=== PATIENT | male | born 1995 | race Two or more races ===

== ENCOUNTER 2018-02-06 14:13 | Emergency (ER) | payer OTHER ==
[2018-02-06 14:32] VITALS: BP 125/78
[2018-02-06] MEDS ORDERED: LIDOCAINE 2%-EPI 1:100000 20 ML MDV ONE (15:00)
--- NOTE | 2018-02-06 15:10 | ED Physician Documentation ---
PD HPI UPPER EXT INJURY - Stated complaint Stated Complaint: HAND LAC - Chief complaint Chief Complaint: Laceration - History obtained from History obtained from: Patient - History of Present Illness Location: Right, Hand Type of injury: Laceration Where injury occurred: Work Timing - onset: Today (Just prior to arrival.) Associated symptoms: No: Weakness, Numbness - Additonal information Additional information: The patient is a 22-year-old male who was removing concrete form boards when his hammer missed a bracket and he slammed his right hand into the concrete form bracket, cutting his hand. He is right hand dominant. He denies any other injuries. He does not know his tetanus status. Review of Systems Skin: reports: Laceration (s) Musculoskeletal: reports: Extremity pain (Right hand.) Neurologic: denies: Focal weakness, Numbness PD PAST MEDICAL HISTORY - Past Medical History Past Medical History: No - Past Surgical History Past Surgical History: Yes Derm: Other - Present Medications Home Medications: Ambulatory Orders Medication Instructions Recorded Confirmed No Known Home Medications [No 02/06/18 02/06/18 Known Home Medications] - Allergies Allergies/Adverse Reactions: Allergies Allergy/AdvReac Type Severity Reaction Status Date / Time No Known Drug Allergies Allergy Verified 02/06/18 14:34 - Social History Does the pt smoke?: No Smoking Status: Never smoker Does the pt have substance abuse?: Yes Substance Use and Type: Marijuana - Immunizations Immunizations are current?: No Immunizations: TDAP >10years/unknown PD ED PE NORMAL - Vitals Vital signs reviewed: Yes (normal) - General General: Alert and oriented X 3, Well developed/nourished - HEENT HEENT: Atraumatic - Respiratory Respiratory: No respiratory distress - Derm Derm: No rash - Extremities Extremities: Other (There is a 1.5 cm laceration on the dorsum of the right hand in the space between the distal second and third metacarpals. He has full flexion and extension of the DIP, PIP, MCP joints against resistance. Distal neurovascular is intact. Exploration of the wound reveals no evidence of tendon involvement.) - Neuro Neuro: Alert and oriented X 3, No motor deficit, No sensory deficit Results - Vitals Vitals: Oxygen O2 Source Room air Procedures - Laceration (location) right hand Length in cm: 1.5 Wound type: Irregular Neurovascular status: Sensory intact, Motor intact, Vascular intact Anesthesia: Lidocaine 2% with epi Wound Preparation: Hibiclens, Irrigated copiously NS, Wound explored, To the base. No: FB identified Skin layer closure: Nylon, Interrupted, Size #-0 - enter number (5), Sutures - enter # (4) Other: Patient tolerated well, No complications, Neurovascular intact, Dressing applied, Tetanus booster given Complexity: Simple PD MEDICAL DECISION MAKING - ED course Complexity details: considered differential, d/w patient, d/w family, other (L & I form was completed.) ED course: The patient's presentation is significant for laceration to the right hand, caused by workplace injury. Treatment in the emergency department included thorough cleaning of the wound and suture repair, after local anesthetic with 2 % lidocaine with epinephrine. Tetanus booster was administered. Antibiotic ointment and gauze dressing was applied. 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 Departure - Departure Disposition: 01 Home, Self Care Clinical Impression: Laceration of right hand Qualifiers: Encounter type: initial encounter Foreign body presence: without foreign body Qualified Code(s): S61.411A - Laceration without foreign body of right hand, initial encounter Condition: Stable Instructions: ED Laceration Hand Comments: Keep the wound clean, and apply antibiotic ointment daily. Use Tylenol or ibuprofen if needed for discomfort. Follow-up for suture removal in about 12 days. Return to the emergency department sooner if you develop any sign of infection, or otherwise worsening symptoms. Discharge Date/Time: 02/06/18 15:17
[2018-02-06] MEDS: LIDOCAINE 2%-EPI 1:100000 20 ML MDV SUBQ STA (15:27)
[2018-02-06] MEDS: LIDOCAINE 1%-EPI 1:100000 20 ML MDV SUBQ STA (15:28)
== END 2018-02-06 15:17 | disposition home or self-care (01) ==
LOC: ED 14:13
DX: S61.411A Laceration without foreign body of right hand, initial encounter (principal); W45.8XXA Other foreign body or object entering through skin, initial encounter; W27.8XXA Contact with other nonpowered hand tool, initial encounter; Y99.0 Civilian activity done for income or pay
CPT/HCPCS: 1040M; 12001; 99282; 99283

== ENCOUNTER 2021-02-04 10:41 | Emergency (ER) | payer SELFPAY ==
[2021-02-04] MEDS ORDERED: KETOROLAC 30 MG/ML VIAL IM STA (11:45)
--- OUTSIDE RECORDS SUMMARY | 2021-02-04 11:47 | EXTERNAL MEDICAL SUMMARY RPT | Continuity of Care Document ---
:1995 Demographics Phone Unavailable Preferred Language Unknown Marital Status Unknown Quaker Affiliation Unknown Race Unknown Ethnic Group Unknown Author Organization [place] Address [address] [place] [address] Phone Social History date description facility [id number]
--- NOTE | 2021-02-04 12:49 | ED Physician Documentation ---
History of Present Illness - Stated complaint Stated Complaint: LOWER BACK/LT HIP PX - Chief complaint Chief Complaint: Back Pain - History obtained from History obtained from: Patient - Additonal information Additional information: 25yM presents with gradually worsening L lower back, buttock pain radiating to L hip over the past three days, initially starting out as gradual onset muscle tightness, that has progressively worsened, constant, aching, worse with walking, unrelieved with OTC meds. denies swelling in the joint, fevers, erythema, urinary or fecal incontinence or retention, extremity n umbness/weakness, groin numbness. Review of Systems Constitutional: denies: Fever Musculoskeletal: reports: Back pain Neurologic: denies: Focal weakness, Numbness PD PAST MEDICAL HISTORY - Past Medical History Past Medical History: No Cardiovascular: None Respiratory: None Neuro: None Endocrine/Autoimmune: None GI: None : None HEENT: None Psych: None Musculoskeletal: None Derm: None - Past Surgical History Past Surgical History: Yes Derm: Other - Present Medications Home Medications: Ambulatory Orders Medication Instructions Recorded Confirmed Ketorolac [Toradol] 10 mg PO Q6H PRN #30 tablet 02/04/21 - Allergies Allergies/Adverse Reactions: Allergies Allergy/AdvReac Type Severity Reaction Status Date / Time No Known Drug Allergies Allergy Verified 02/04/21 11:03 - Social History Does the pt smoke?: No Smoking Status: Never smoker Does the pt have substance abuse?: Yes - Immunizations Immunizations are current?: No Immunizations: TDAP >10years/unknown PD ED PE NORMAL - Vitals Vital signs reviewed: Yes - General General: Alert and oriented X 3, No acute distress, Well developed/nourished - HEENT HEENT: Atraumatic, PERRL, EOMI - Back Back: Other (L lower back and buttock ttp in muscle distribution) - Derm Derm: Normal color, Warm and dry - Extremities Extremities: No deformity, Normal ROM s pain, Other (2+ BL LE DP/PT pulses. normal sensation and strength. ) - Neuro Neuro: Alert and oriented X 3 - Psych Psych: Normal mood, Normal affect Results - Vitals Vitals: Vital Signs - 24 hr 02/04/21 02/04/21 10:59 13:00 Temperature 37.2 C 36.5 C Heart Rate 78 57 L Respiratory 15 18 Rate Blood Pressure 129/66 143/80 H O2 Saturation 100 97 Oxygen O2 Source Room air PD MEDICAL DECISION MAKING - ED course ED course: 25yM presents with low back muscle strain, improved with toradol. script provided. education given about conservative management. strict return precautions given. Departure - Departure Disposition: 01 Home, Self Care Clinical Impression: Hip pain, left, Back pain, Muscle strain Condition: Good Instructions: ED Low Back Pain Injury Prescriptions: Ketorolac [Toradol] 10 mg PO Q6H PRN #30 tablet PRN Reason: Pain Comments: You were seen in the emergency department for lower back strain. Make sure that you get lots of rest and do gentle stretching exercises. Use ice for 20 minutes every hour alternating with heat. Please return to the emergency department if you experience any new or worsening symptoms or have other concerns. Follow-up with your primary doctor. Do not take ibuprofen if you are taking's Toradol. Forms: Activity restrictions Discharge Date/Time: 02/04/21 13:02
[2021-02-04 13:01] VITALS: BP 143/80
== END 2021-02-04 13:02 | disposition home or self-care (01) ==
LOC: ED 10:41
DX: S39.012A Strain of muscle, fascia and tendon of lower back, initial encounter (principal); X58.XXXA Exposure to other specified factors, initial encounter
CPT/HCPCS: 96372; 99283; 99284

== ENCOUNTER 2022-12-26 09:55 | Emergency (ER) | payer OTHER ==
[2022-12-26 10:20] VITALS: BP 137/68
--- NOTE | 2022-12-26 10:50 | XRAY Report ---
PROCEDURE: Foot 3 View RT INDICATIONS: Trauma TECHNIQUE: 3 views of the foot were acquired. COMPARISON: None FINDINGS: Bones: No fractures or dislocations. No suspicious bony lesions. Soft tissues: No tibiotalar joint effusion. Achilles tendon appears normal. IMPRESSION: No acute bony abnormality. Reviewed by: Marek Malone on 12/26/2022 10:48 AM PDT Approved by: Marek Malone on 12/26/2022 10:48 AM PDT Station ID: [id number]
--- NOTE | 2022-12-26 12:17 | ED Physician Documentation ---
PD HPI LOWER EXT INJURY - Stated complaint Stated Complaint: RT FOOT INJ - Chief complaint Chief Complaint: Ext Problem - History obtained from History obtained from: Patient - Additional information Additional information: Otherwise healthy 27-year-old gentleman has developed pain at the right first MTP over the last 3 days. There was no injury. He is never had this before. No fevers or chills. PD PAST MEDICAL HISTORY - Past Medical History Cardiovascular: None Respiratory: None Neuro: None Endocrine/Autoimmune: None GI: None : None HEENT: None Psych: None Musculoskeletal: None Derm: None - Past Surgical History Past Surgical History: Yes Derm: Other - Present Medications Home Medications: Ambulatory Orders Medication Instructions Recorded Confirmed Ketorolac [Toradol] 10 mg PO Q6H PRN #30 tablet 02/04/21 HYDROcod/ACETAM 5/325 [[place] 5/325] 1 - 2 tab PO Q6H PRN #7 tablet 12/26/22 Indomethacin [Indocin] 25 mg PO BIDWM #10 12/26/22 predniSONE [Deltasone] 60 mg PO DAILY 5 Days #15 tablet 12/26/22 - Allergies Allergies/Adverse Reactions: Allergies Allergy/AdvReac Type Severity Reaction Status Date / Time No Known Drug Allergies Allergy Verified 12/26/22 10:20 - Social History Does the pt smoke?: No Smoking Status: Never smoker Does the pt have substance abuse?: Yes - Immunizations Immunizations are current?: No Immunizations: TDAP >10years/unknown PD ED PE NORMAL - Vitals Vital signs reviewed: Yes - General General: Alert and oriented X 3, No acute distress - Extremities Extremities: Other (He has focal tenderness of the right first MTP. There is no warmth or redness. No tenderness of the plantar fascia. No other tenderness about the foot.) - Neuro Neuro: Alert and oriented X 3, Normal speech Results - Vitals Vitals: Vital Signs - 24 hr 12/26/22 10:18 Temperature 36.4 C L Heart Rate 73 Respiratory 20 Rate Blood Pressure 137/68 H O2 Saturation 97 Oxygen O2 Source Room air - Rads (name of study) Three-view x-ray of the right foot is unremarkable Relevant Findings:: Final report received, EMP independent interpretation of test PD Medical Decision Making - ED course ED course: 27-year-old gentleman with atraumatic pain at the right first MTP with focal tenderness there and normal x-ray. Its not particular warm or red but the location is very suggestive of podagra. Departure - Departure Disposition: 01 Home, Self Care Clinical Impression: Podagra Condition: Good Record reviewed to determine appropriate education?: Yes Instructions: ED Diet Gout, ED Arthritis Gout Prescriptions: predniSONE [Deltasone] 60 mg PO DAILY 5 Days #15 tablet Indomethacin [Indocin] 25 mg PO BIDWM #10 HYDROcod/ACETAM 5/325 [[place] 5/325] 1 - 2 tab PO Q6H PRN #7 tablet PRN Reason: Pain Comments: As discussed, the location of your pain and atraumatic nature of it is very suspicious for podagra/gout. Gout is the deposition of uric acid crystals in the joint and the location of your pain is the most common site for gout. I sent some anti-inflammatories and a painkiller up to [facility] in [place]. Call your doctor to arrange a follow-up appointment, make the next available appointment. In the interim, return anytime if worse or if new symptoms develop. I am prescribing a short course of narcotic pain medication for you. These are potentially dangerous and addictive medications that should be used carefully. These medications may constipate you. Take an wexq-rbd-iozbpzb stool softener (docusate) twice daily with plenty of water while taking these medications. If you go 24 hours without a bowel movement, take folr-ykw-xrlqfnx miralax, per package instructions. Do not drink or drive while taking these medications. If you received narcotic or sedating medications while in the emergency department, do not drive for 24 hours. Store this medication in a safe, secure place and out of reach of children. It is a violation of federal law to give or sell this medication to another person or to use in a manner other than prescribed. The ED will not refill narcotic prescriptions, including prescriptions lost or stolen. To dispose of unwanted medications: 1. [facility] at [address] in [place] has a medication drop box. They accept prescription medications (in pill form) Monday through Monday 9:00 a.m. to 5:00 p.m. 2. The [facility] accepts prescription medications (in pill form only) for disposal year round. Call for more information. 3. Contact the [facility] for the next [facility] sponsored prescription drug collection event. , [phone], or [phone]; Note that many narcotic pain relievers also contain Tylenol/acetaminophen. Please ensure that your total dose of acetaminophen from all sources does not exceed 3 g (3000 mg) per day.
== END 2022-12-26 12:43 | disposition home or self-care (01) ==
LOC: ED 09:55
DX: M10.9 Gout, unspecified (principal)
CPT/HCPCS: 99283; 99284

== ENCOUNTER 2023-04-28 16:05 | Emergency (ER) | payer OTHER ==
[2023-04-28 16:28] VITALS: BP 131/67
--- NOTE | 2023-04-28 16:55 | XRAY Report ---
PROCEDURE: Ankle 3 View RT INDICATIONS: Trauma. Rolled ankle. Lateral ankle pain. TECHNIQUE: 3 views of the ankle were acquired. COMPARISON: None. FINDINGS: Bones: No fractures or dislocations. Ankle mortise is normally aligned. No suspicious bony lesions . Soft tissues: No tibiotalar joint effusion. Achilles tendon appears normal. IMPRESSION: No acute bony abnormality. If there remains a high clinical concern for fracture, including inability to bear weight, consider cross-sectional imaging to exclude an occult fracture. Reviewed by: Marek Malone on 04/28/2023 4:54 PM PDT Approved by: Marek Malone on 04/28/2023 4:54 PM PDT Station ID: [id number]
--- NOTE | 2023-04-28 17:13 | ED Physician Documentation ---
PD HPI LOWER EXT INJURY - Stated complaint Stated Complaint: R ANKLE INJ - Chief complaint Chief Complaint: Trauma Ext - History of Present Illness PD HPI LOW EXT INJURY LOCATION: Right, Ankle Type of injury: Twist Where injury occurred: Work Review of Systems Skin: denies: Abrasion (s) Neurologic: denies: Focal weakness, Numbness PD PAST MEDICAL HISTORY - Past Medical History Cardiovascular: None Respiratory: None Neuro: None Endocrine/Autoimmune: None GI: None : None HEENT: None Psych: None Musculoskeletal: None Derm: None - Past Surgical History Past Surgical History: Yes Derm: Other - Present Medications Home Medications: Ambulatory Orders Medication Instructions Recorded Confirmed Ketorolac [Toradol] 10 mg PO Q6H PRN #30 tablet 02/04/21 HYDROcod/ACETAM 5/325 [[place] 5/325] 1 - 2 tab PO Q6H PRN #7 tablet 12/26/22 Indomethacin [Indocin] 25 mg PO BIDWM #10 cap 12/26/22 predniSONE [Deltasone] 60 mg PO DAILY 5 Days #15 tablet 12/26/22 - Allergies Allergies/Adverse Reactions: Allergies Allergy/AdvReac Type Severity Reaction Status Date / Time No Known Drug Allergies Allergy Verified 04/28/23 16:27 - Social History Does the pt smoke?: No Smoking Status: Never smoker Does the pt have substance abuse?: Yes - Immunizations Immunizations are current?: No Immunizations: TDAP >10years/unknown PD ED PE NORMAL - Vitals Vital signs reviewed: Yes - General General: Alert and oriented X 3, Well developed/nourished - Derm Derm: Normal color, Warm and dry - Extremities Extremities: Other (tender laterally. no gross laxity.) Results - Vitals Vitals: Oxygen O2 Source Room air - Rads (name of study) ankle ronny Relevant Findings:: EMP independent interpretation of test (no fractures) PD Medical Decision Making - ED course Complexity details: reviewed results, considered differential, d/w patient Reviewed Lab Results: ankle injury at work. xray without fracture . Departure - Departure Disposition: 01 Home, Self Care Clinical Impression: Ankle sprain Qualifiers: Encounter type: initial encounter Involved ligament of ankle: unspecified ligament Laterality: right Qualified Code(s): S93.401A - Sprain of unspecified ligament of right ankle, initial encounter Condition: Stable Record reviewed to determine appropriate education?: Yes Instructions: ED Sprain Ankle W X Ray Follow-Up: Orthopedic Care [Provider Group] Comments: Your x-ray is normal without any signs of fractures. You will still have pain with weightbearing and use due to a good sprain. Initially off work for 2 to 3 days and then light activity for another 2 to 3 days. Use the ankle brace when up and around for 2 or 3 weeks until well-healed. For the next few days, ice elevate and rest for swelling. Ibuprofen 2-3 times daily and add Tylenol if needed. Recheck with Ortho or your primary care if not well improved to fairly normal activity over the next 1 to 1-1/2 weeks. Forms: Activity restrictions Discharge Date/Time: 04/28/23 17:53
[2023-04-28] MEDS ORDERED: IBUPROFEN 800 MG TABLET PO STA (17:30)
== END 2023-04-28 17:53 | disposition home or self-care (01) ==
LOC: ED 16:05
DX: S93.401A Sprain of unspecified ligament of right ankle, initial encounter (principal); X50.1XXA Overexertion from prolonged static or awkward postures, initial encounter; Y99.0 Civilian activity done for income or pay
CPT/HCPCS: 73610; 99283; A9270